=== PATIENT | female | born 1995 | race Caucasian/White ===

== ENCOUNTER 2017-04-20 20:25 | Emergency (ER) | payer OTHER ==
[2017-04-20 21:01] VITALS: BP 114/63
[2017-04-20 21:16] LABS: APPEARANCE,URINE CLOUDY; BILIRUBIN,URINE NEGATIVE (NEGATIVE); GLUCOSE, URINE NEGATIVE (NEGATIVE); KETONES,URINE NEGATIVE (NEGATIVE); LEUKOCYTE ESTERASE,URINE LARGE (NEGATIVE); NITRITE,URINE NEGATIVE (NEGATIVE); PROTEIN,URINE >=500 mg/dL (NEGATIVE); URINE SPECIFIC GRAVITY 1.024; UROBILINOGEN,URINE NEGATIVE mg/dL (<2.0)
[2017-04-20] MEDS ORDERED: LIDOCAINE 1% INJ-PF (10 MG/ML) 30 ML SDV INJ ONE (22:08)
[2017-04-20] MEDS ORDERED: CEFTRIAXONE INJ 1000 MG VIAL IM ONE (22:08)
--- NOTE | 2017-04-20 22:12 | ER Document Report ---
HPI - HPI Patient complains to provider of: Dysuria Pain Level: 4 Context: Patient is a 21-year-old female comes emergency department for chief complaint of painful urination and lower abdominal cramping since yesterday, she states that it is burning with urination. She states she gets frequent urinary tract infections and struggles with constipation. She denies vaginal bleeding or discharge. She denies fever or chills, nausea or vomiting. - CARDIOVASCULAR Cardiovascular: DENIES: Chest pain - DERM Skin Color: Normal Past Medical History - General Information source: Patient - Social History Smoking Status: Never Smoker Frequency of alcohol use: None Drug Abuse: None Lives with: Family Family History: Reviewed & Not Pertinent Patient has suicidal ideation: No Patient has homicidal ideation: No - Medical History Medical History: Negative Renal/ Medical History: Denies: Hx Peritoneal Dialysis Surgical Hx: Negative - Immunizations Immunizations up to date: Yes Hx Diphtheria, Pertussis, Tetanus Vaccination: Yes Vertical Provider Document - CONSTITUTIONAL General Appearance: WD/WN, No Apparent Distress - INFECTION CONTROL TRAVEL OUTSIDE OF THE [place] IN LAST 30 DAYS: No - HEENT HEENT: Atraumatic, Normocephalic - RESPIRATORY Respiratory: Breath Sounds Normal, No Respiratory Distress O2 Sat by Pulse Oximetry: 100 - CARDIOVASCULAR Cardiovascular: Regular Rate, Regular Rhythm - GI/ABDOMEN Gastrointestinal: Abdomen Soft. negative: Abdomen Non-Tender - Mild suprapubic tenderness, otherwise no abdominal tenderness noted, no guarding - BACK Back: Normal Inspection - MUSCULOSKELETAL/EXTREMETIES Musculoskeletal/Extremeties: MAEW, FROM, Non-Tender - NEURO Level of Consciousness: Awake, Alert, Appropriate - DERM Integumentary: Warm, Dry, No Rash Course - Re-evaluation Re-evalutation: Initial temperature of 101F was entered in error. Patient has had no fever recorded. Patient is well-appearing, she has mild suprapubic tenderness on exam , no CVA tenderness. She does definitely have a urinary tract infection on laboratory exam. She was given a dose of Rocephin here, placed on Keflex, given Diflucan for after she completes this because of frequent yeast infections. Patient also states she is going to seismograph recorder because of ongoing constipation issues. Discussed treatment, follow-up, return precautions in detail, patient states understanding and agreement. - Vital Signs Vital signs: Temp Pulse Resp BP Pulse Ox 98.8 F 66 16 114/63 100 10/10/17 20:51 04/20/17 20:51 04/20/17 20:51 04/20/17 20:51 04/20/17 20:51 - Laboratory Laboratory results interpreted by me: 04/20/17 20:58 Urine Protein >=500 H Urine Blood MODERATE H Ur Leukocyte Esterase LARGE H Urine Ascorbic Acid 40 H Discharge - Discharge Clinical Impression: Dysuria Urinary tract infection Qualifiers: Urinary tract infection type: site unspecified Hematuria presence: without hematuria Qualified Code(s): N39.0 - Urinary tract infection, site not specified Condition: Stable Disposition: HOME, SELF-CARE Additional Instructions: Your workup indicates a urinary tract infection. Take the antibiotics as prescribed to completion. After completion take the Diflucan pill to treat yeast infection. Follow-up with primary care for additional evaluation of ongoing constipation issues. Return to emergency department for any concerning or worsening symptoms including fever, vomiting, etc. Prescriptions: Cephalexin Monohydrate [Keflex 500 mg Capsule] 500 mg PO BID #14 capsule Fluconazole [Diflucan] 150 mg PO ONCE PRN #1 tablet PRN Reason:
== END 2017-04-20 22:30 | disposition home or self-care (01) ==
LOC: ER 20:25
DX: N39.0 Urinary tract infection, site not specified (principal); R10.30 Lower abdominal pain, unspecified; R50.9 Fever, unspecified; Z87.440 Personal history of urinary (tract) infections
CPT/HCPCS: 99283; 87086; 81025; 87088; 81001; 87186; J3490; J0696